=== PATIENT | male | born 2005 | race Caucasian/White ===

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

== ENCOUNTER 2024-03-02 10:21 | Emergency (ER) | payer OTHER, SELFPAY ==
[2024-03-02 10:23] VITALS: BP 142/87; PULSE 83; RESP 16; TEMP 36.4; O2SAT 100
--- NOTE | 2024-03-02 10:27 | ED.WOUNDLAC ---
HPI - Wound/Laceration General Chief Complaint: Wound/Laceration Stated Complaint: R thumb injury Time Seen by Provider: 03/02/24 10:24 History of Present Illness HPI narrative: 18-year-old male presents to the emergency room for evaluation of a laceration to his right thumb. 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 Patient states his last tetanus shot was within in the last 10 years. Related Data Home Medications Medication Instructions Recorded Confirmed No Home Medications 01/30/21 01/30/21 Allergies Allergy/AdvReac Type Severity Reaction Status Date / Time No Known Allergies Allergy Verified 03/02/24 10:26 Review of Systems Review of Systems: CONSTITUTIONAL: Denies fever, chills, or sweats. EYES: Denies visual changes, redness, or discharge. ENT: Denies rhinorrhea, congestion, sore throat, or otalgia. CARDIOVASCULAR: Denies chest pain, palpitations, or edema. RESPIRATORY: Denies cough or dyspnea. GASTROINTESTINAL: Denies abdominal pain, nausea, vomiting, or diarrhea. GENITOURINARY: Denies dysuria or hematuria. SKIN: Denies rash or itching. MUSCULOSKELETAL: Denies back pain, joint pain, or myalgia. NEUROLOGIC: Denies headache, numbness, dizziness, or weakness. PSYCHIATRIC: Denies anxiety or depression. PMFSH Past Medical History Medical History Depression Social History Social History Alcohol intake: current Exam Narrative: GENERAL: Well-appearing, well-nourished, no physical limitations, and in no acute distress. HEAD: Normocephalic, atraumatic. EYES: Conjunctivae normal, PERRLA and EOMI. CHEST: Clear to auscultation. No respiratory distress. No wheezes rales or rhonchi. HEART: Regular rate and rhythm. No murmur heard. Normal peripheral pulses. EXTREMITIES: Normal range of motion. No edema. No clubbing or cyanosis SKIN: Right thumb: 2 cm linear laceration to tip NEURO: No focal deficits. Alert and oriented x3. MAEW. CN's II-XI intact bilaterally, normal gait PSYCH: Cooperative. Normal mood and affect. Course Vital Signs Vital signs: Vital Signs Temperature 36.4 C L 03/02/24 10:23 Pulse Rate 83 03/02/24 10:23 Respiratory Rate 16 03/02/24 10:23 Blood Pressure 142/87 H 03/02/24 10:23 Pulse Oximetry 100 03/02/24 10:23 Oxygen Delivery Room Air 03/02/24 10:23 Temperature 36.4 C L 03/02/24 10:23 Pulse Rate 83 03/02/24 10:23 Respiratory Rate 16 03/02/24 10:23 Blood Pressure 142/87 H 03/02/24 10:23 Pulse Oximetry 100 03/02/24 10:23 Oxygen Delivery Room Air 03/02/24 10:23 Procedures Laceration Laceration 1: Date: 03/02/24 Time: 11:02 Site: hand Side (If applicable): right Size (cm): 3 Description: linear Depth: simple, single layer Local Anesthetic: lidocaine 1% Amount of anesthesia used (mL): 7 ====== Skin Level ====== Skin layer closed with: nylon Size (cm): 5-0 Number of sutures: 6 Technique: simple, interrupted ====== Subcutaneous Layer ====== ====== Muscle Layer ====== ====== Tendon Layer ====== Discharge Plan Discharge Clinical Impression: Laceration Patient Disposition: Home, Self-Care Condition: Stable Instructions: Antibiotic Form, Care For Your Stitches (ED), Laceration (ED) Prescriptions: No Action No Home Medications Follow-up/Referrals: UNKNOWN,DOCTOR [Primary Care Provider] - Time of Disposition: 11:03
== END 2024-03-02 11:12 | disposition home or self-care (01) ==
LOC: ANHED 11:11
PROVIDERS: Emergency Provider Nurse Practitioner Family
DX: S61.011A Laceration without foreign body of right thumb without damage to nail, initial encounter (principal); W26.0XXA Contact with knife, initial encounter; F32.A Depression, unspecified
CPT/HCPCS: 12002; 99282